=== PATIENT | male | born 1985 | race African-American/Black ===

== ENCOUNTER 2024-09-11 10:59 | Emergency (ER) | payer MEDICAID, OTHER ==
[~2024-09-11] VITALS: Ht 185.4 cm; Wt 84.0 kg
[2024-09-11 11:01] VITALS: O2SAT 98
[2024-09-11] MEDS: ACETAMINOPHEN 325MG TABLET PO ONE (13:23)
[2024-09-11] MEDS: KETOROLAC 30MG/ML VIAL IM ONE (13:53)
[2024-09-11] MEDS ORDERED: ACET-2708 MT (14:05)
[2024-09-11] MEDS ORDERED: LIDO-53 TP (14:22)
[2024-09-11] MEDS ORDERED: LISINOPRIL 40MG TABLET PO ONE (15:15)
[2024-09-11] MEDS: LISINOPRIL 20MG TABLET PO NR (15:25)
[2024-09-11 16:42] VITALS: BP 166/115; PULSE 74; RESP 18; TEMP 37.2; O2SAT 100
== END 2024-09-11 16:45 | disposition home or self-care (01) ==
LOC: ER 10:59
DX: M25.552 Pain in left hip (principal); M25.562 Pain in left knee; I10 Essential (primary) hypertension; F12.90 Cannabis use, unspecified, uncomplicated; Z86.73 Personal history of transient ischemic attack (TIA), and cerebral infarction without residual deficits; W06.XXXA Fall from bed, initial encounter; Y93.01 Activity, walking, marching and hiking; Y92.89 Other specified places as the place of occurrence of the external cause; Y99.8 Other external cause status
CPT/HCPCS: 99284; 29505; 73522; 71101; 73030; 73080; 73564; 96372; J1885